=== PATIENT | male | born 1955 | race Caucasian/White ===

== ENCOUNTER 2018-06-11 18:17 | Inpatient (IN) | payer MEDICARE, OTHER ==
[2018-06-11 19:36] LABS: % BASOPHILS 0.8 % (0.0-2.0); % EOSINOPHILS 2.5 % (0.0-5.0); % LYMPHOCYTES 22.2 % (20.0-50.0); % MONOCYTES 7.7 % (2.0-10.0); % NEUTROPHILS 66.8 % (40.0-80.0); BASOPHILE ABSOLUTE 0.1 Th/cumm (0-0.2); EOSINOPHILE ABSOLUTE 0.2 Th/cmm (0.1-0.4); HEMATOCRIT 44.5 % (41.0-60); HEMOGLOBIN 14.6 gm/dL (12-16); LYMPHOCYTE ABSOLUTE 2.1 Th/cmm (1.5-3.0); MEAN CELL VOLUME 89.2 fl (80-99); MEAN CORPUSCULAR HEMOGLOBIN 29.3 pg (26.0-30.0); MEAN CORPUSCULAR HGB CONC 32.9 pg (28.0-36.0); MEAN PLATELET VOLUME 9.2 fl; MONOCYTE ABSOLUTE 0.7 Th/cmm (0.3-1.0); NEUTROPHILE ABSOLUTE 6.5 Th/cmm (1.8-8.0); PLATELET COUNT 247 Th/cmm (150-400); RED BLOOD COUNT 4.99 Mil/cmm (4.30-5.70); RED CELL DISTRIBUTION WIDTH 13.2 % (11.5-20.0); WHITE BLOOD COUNT 9.6 Th/cmm (4.8-10.8)
[2018-06-11 19:53] LABS: ANION GAP 11.3 (7.0-16.0); BUN - UREA NITROGEN 16 mg/dL (7-25); CALCIUM SERUM 9.3 mg/dL (8.6-10.3); CARBON DIOXIDE 27.7 mEq/L (21.0-31.0); CHLORIDE 102 mEq/L (98-107); CREATININE - SERUM 1.3 mg/dL (0.7-1.3); GFR AFRICAN-AMERICAN > 60.0 ml/min (>90); GFR NON AFRICAN-AMERICAN 59.3 ml/min; GLUCOSE 108 mg/dL (70-105); SODIUM SERUM 137 mEq/L (136-145)
--- NOTE | 2018-06-11 20:05 | ED Physician Chart ---
ED Chief Complaint/HPI - Patient Information Date Seen:: 06/11/18 Time Seen:: 20:01 Chief Complaint:: agitation History of Present Illness:: 62 male [facility] for agitation striking at people hx of htn parkinsons cad schizo Allergies:: Allergies Allergy/AdvReac Type Severity Reaction Status Date / Time No Known Allergies Allergy Verified 06/11/18 18:23 Vitals:: Vital Signs - 8 hr 06/11/18 18:23 Temp 98.3 F HR 75 RR 19 BP 139/80 O2 Sat % 97 ED Review of Systems - Review of Systems General/Constitutional: No fever, No chills, No weight loss, No weakness, No diaphoresis, No edema, No loss of appetite Skin: No skin lesions, No rash, No bruising Head: No headache, No light-headedness Eyes: No loss of vision, No pain, No diplopia ENT: No earache, No nasal drainage, No sore throat, No tinnitus Neck: No neck pain, No swelling, No thyromegaly, No stiffness, No mass noted Cardio Vascular: No chest pain, No palpitations, No PND, No orthopnea, No edema Pulmonary: No SOB, No cough, No sputum, No wheezing GI: No nausea, No vomiting, No diarrhea, No pain, No melena, No hematochezia, No constipation, No hematemesis G/U: No dysuria, No frequency, No hematuria Musculoskeletal: No bone or joint pain, No back pain, No muscle pain Endocrine: No polyuria, No polydipsia Psychiatric: Other (schizo) Hematopoietic: No bruising, No lymphadenopathy Allergic/Immuno: No urticaria, No angioedema Neurological: No syncope, No focal symptoms, No weakness, No paresthesia, No headache, No seizure, No dizziness, No confusion, No vertigo Family Medical History - Family Member Mother History Unknown: Yes ED Physical Exam - Physical Examination General/Constitutional: Awake, Well-developed, well-nourished, Alert, No distress, GCS 15, Non-toxic appearing, Ambulatory Head: Atraumatic Eyes: Lids, conjuctiva normal, PERRL, EOMI Skin: Nl inspection, No rash, No skin lesions, No ecchymosis, Well hydrated, No lymphadenopathy ENMT: External ears, nose nl, Nasal exam nl, Lips, teeth, gums nl Neck: Nontender, Full ROM w/o pain, No JVD, No nuchal rigidity, No bruit, No mass, No stridor Respiratory: Nl effort/Exclusion, Clear to Auscultation, No Wheeze/Rhonchi/Rales Cardio Vascular: RRR, No murmur, gallop, rubs, NL S1 S2 GI: No tenderness/rebounding/guarding, No organomegaly, No hernia, Normal BS's, Nondistended, No mass/bruits, No McBurney tenderness : No CVA tenderness Extremities: No tenderness or effusion, Full ROM, normal strength in all extremities, No edema, Normal digits & nails Neuro/Psych: Alert/oriented, DTR's symmetric, Normal sensory exam, Normal motor strength, Judgement/insight normal, Mood normal, Normal gait, No focal deficits Misc: Normal back, No paraspinal tenderness ED Labs/Radiology/EKG Results - Lab Results Results: Laboratory Tests 06/11/18 06/11/18 19:10 19:10 WBC 9.6 RBC 4.99 Hgb 14.6 Hct 44.5 MCV 89.2 MCH 29.3 MCHC Differential 32.9 RDW 13.2 Plt Count 247 MPV 9.2 Neutrophils % 66.8 Lymphocytes % 22.2 Monocytes % 7.7 Eosinophils % 2.5 Basophils % 0.8 Sodium 137 Potassium 4.0 Chloride 102 Carbon Dioxide 27.7 Anion Gap 11.3 BUN 16 Creatinine 1.3 Est GFR ( Amer) > 60.0 Est GFR (Non-Af Amer) 59.3 BUN/Creatinine Ratio 12.3 Glucose 108 H Calcium 9.3 ED Assessment - Assessment General Assessment: parkinson schizo agitation striking at people ED Septic Shock - . Is Septic Shock (SBP<90, OR Lactate>4 mmol\L) present?: No - <6hrs of presentation: Vital Signs: Vital Signs - 8 hr 06/11/18 18:23 Temp 98.3 F HR 75 RR 19 BP 139/80 O2 Sat % 97 ED Reassessment (Disposition) - Reassessment Reassessment:: schizo agitation parkinsons - Diagnosis Diagnosis:: as above - Patient Disposition Discharge/Transfer:: Acute Care w/in this hosp Admitted to:: Med/Surg Condition at Disposition:: Stable
[2018-06-11 20:17] LABS: URINE SOURCE CLEAN C
[2018-06-11 20:50] LABS: URINE BILIRUBIN NEGATIVE (NEGATIVE); URINE BLOOD NEGATIVE (NEGATIVE); URINE GLUCOSE (UA) NEGATIVE (NEGATIVE); URINE KETONE NEGATIVE (NEGATIVE); URINE LEUKOCYTE ESTERASE NEGATIVE (NEGATIVE); URINE NITRATE NEGATIVE (NEGATIVE); URINE PROTEIN NEGATIVE (NEGATIVE); URINE UROBILINOGEN 0.2 E.U./dL (0.2 - 1.0)
[2018-06-11 20:51] LABS: URINE CLARITY CLEAR (CLEAR); URINE COLOR YELLOW; URINE MICROSCOPIC INDICATED? YES
[2018-06-11 20:58] LABS: URINE BACTERIA FEW /hpf (NONE SEEN); URINE EPITHELIAL CELLS FEW /lpf (FEW); URINE RBC 0-2 /hpf (0-5); URINE WBC 0-2 /hpf (0-5)
[2018-06-11 22:23] VITALS: BP 110/87
[2018-06-11] MEDS ORDERED: Magnesium Hydroxide (MOM) 30 mL UDC PO PRN (22:48)
[2018-06-11 23:14] LABS: CHOLESTEROL 123 mg/dL (<200); HDL -HIGH DENSITY LIPOPROTEIN 31 mg/dL (23-92); TRIGLYCERIDES 109 mg/dL (<150)
[2018-06-12] MEDS: Benztropine 1 MG TAB PO SCH ×2 (08:58→17:42)
[2018-06-12] MEDS: Aspirin 81mg Chewable Tab PO SCH (08:58)
[2018-06-12] MEDS ORDERED: DEUTETRABENAZINE 6 MG PO SCH (09:00)
[2018-06-12] MEDS ORDERED: HALOPERIDOL 10 MG PO SCH (09:00)
--- NOTE | 2018-06-12 12:42 | History & Physical ---
ADMIT DATE: 06/11/2018 IDENTIFYING INFORMATION: The patient is a 62-year-old male. CHIEF COMPLAINT: "I need checkup." HISTORY OF PRESENT ILLNESS: The patient was sent from [place] for psych unit. The patient has been agitated, paranoid schizophrenia. He has been aggressive verbally striking at staff. The patient himself was a poor historian that he has no idea why he is here. He think he is here to check up. He reports that he sleeps well, eats well. He denies any current visual hallucinations or paranoia. Denies any intent to harm himself or anyone. He has no insight whatsoever about why he is here. The patient is with history of schizophrenia. He denies substance abuse. PAST PSYCHIATRIC HISTORY: The patient reports that he has a history of using alcohol, THC, in the past, not recently. He has a history of prior hospitalization because of hearing voices. He said never tried to harm himself. He is unable to tell me the dates. MEDICAL HISTORY: I will defer to the medical doctor. ALLERGIES: The patient has no known drug allergies. MEDICATIONS: The patient has been on Haldol and Seroquel. He was restarted on this medication, Haldol 10 mg daily and 2.5 mg at bedtime. He is also on lisinopril, Plavix, Coreg, Cogentin 2 mg twice a day, Seroquel 300 at bedtime with no side effects. FAMILY AND SOCIAL HISTORY: The patient reports that he is single, never , no children. He has 2 years in college. He used to work as security alarm technician. History of using drugs in the past, alcohol and marijuana, but not recently. He is not dating. He lives in a room and board, he believed. No family psychotic disorder. No history of substance abuse. No legal problem. MENTAL STATUS EXAMINATION: The patient is appropriately dressed, appropriately groomed. His mood is depressed. Affect is constricted. Thoughts are concrete. Speech is coherent. He was alert. He could not tell me the date. He knew he was in the hospital, did not know why. He said he is here for a checkup. He denies any current visual hallucination, paranoia and denies any intent to harm herself or anybody sleeps well, eats well. 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 He says ____. He can remember his age, date of . However, he think that current president is Juan Francisco. Recent recent memory is poor, does not know the reason why he is here. Insight about his illness is poor, does not realize that there is a problem. Judgment is poor with him striking staff being aggressive. IMPRESSION: Chronic undifferentiated schizophrenia versus schizoaffective disorder. MEDICAL DIAGNOSES: Deferred to the medical doctor. His assets, he is accepting treatment. Negative poor coping skills. INITIAL TREATMENT PLAN: The patient will be continued medication. We will adjust medication as needed. We will do group therapy, milieu therapy, and individual therapy. ESTIMATED LENGTH OF STAY: 3-7 days. DISCHARGE CRITERIA: Decrease in psychosis, agitation. No longer threatening. After discharge, outpatient treatment. [facility]# [id number]
--- NOTE | 2018-06-12 14:39 | History & Physical ---
ADMIT DATE: 06/12/[address] Ovalles. CHIEF COMPLAINT: Agitation. HISTORY OF PRESENT ILLNESS: This is a 62-year-old male who is a senior living resident, admitted to the Geropsych Unit due to 1-day history of agitation towards the nursing staff and residents at the senior living. PAST MEDICAL HISTORY: Parkinson, CAD, hypertension, schizophrenia. PAST SURGICAL HISTORY: Unknown. ALLERGIES: No known drug allergies. HOME MEDICATIONS: See medication list. REVIEW OF SYSTEMS: GENERAL: Denies any fevers or chills. CARDIOVASCULAR: Denies chest pain. RESPIRATORY: Denies shortness of breath. GI: Denies nausea, vomiting, abdominal pain. GENITOURINARY: Denies increased frequency or dysuria. NEUROLOGIC: No headaches, seizures, or syncope. All other systems are reviewed and are negative. PHYSICAL EXAMINATION: GENERAL: The patient is well-developed, well-nourished, in no apparent distress. VITAL SIGNS: Temperature 99.1, heart rate 79, blood pressure 129/89, respirations 20, O2 93%. HEENT: Head: Normocephalic, atraumatic. NECK: Supple. No mass. LUNGS: Clear bilaterally. ABDOMEN: Soft, nontender. LABORATORY DATA: WBC 9.6, H and H 14.6 and 44.5, platelet of 247. Sodium 137, potassium 4.0, chloride 102, BUN 16, creatinine 1.3. ASSESSMENT: Agitation, hypertension, Parkinson disease, coronary artery disease, schizophrenia. PLAN: We will continue the patient's senior living medications, fall precautions, safety precautions. We will continue to monitor this patient. JOB# [id number]
[2018-06-12] MEDS: Atorvastatin Calcium 10 MG TAB PO SCH (20:37)
[2018-06-12] MEDS ORDERED: Non-Formulary Item 1 EA (Rosuvastatin Calcium [Crestor] 5 MG) PO SCH (21:00)
[2018-06-13] MEDS: Benztropine 1 MG TAB PO SCH ×2 (08:42→16:59)
[2018-06-13] MEDS: Aspirin 81mg Chewable Tab PO SCH (08:42)
[2018-06-13] MEDS: Atorvastatin Calcium 10 MG TAB PO SCH (20:37)
[2018-06-14] MEDS: Aspirin 81mg Chewable Tab PO SCH (08:32)
[2018-06-14] MEDS: Benztropine 1 MG TAB PO SCH ×2 (08:32→16:45)
--- NOTE | 2018-06-14 12:03 | Internal Medicine Prog Note ---
Internal Medicine Subjective - Subjective Service Date: 06/14/18 Patient seen and examined:: with staff Patient is:: awake Per staff patient has:: tolerating meds Internal Medicine Objective - Results Result Diagrams: 06/11/18 19:10 06/11/18 19:10 Recent Labs: Laboratory Last Values WBC 9.6 Th/cmm (4.8-10.8) 06/11/18 19:10 RBC 4.99 Mil/cmm (4.30-5.70) 06/11/18 19:10 Hgb 14.6 gm/dL (12-16) 06/11/18 19:10 Hct 44.5 % (41.0-60) 06/11/18 19:10 MCV 89.2 fl (80-99) 06/11/18 19:10 MCH 29.3 pg (26.0-30.0) 06/11/18 19:10 MCHC Differential 32.9 pg (28.0-36.0) 06/11/18 19:10 RDW 13.2 % (11.5-20.0) 06/11/18 19:10 Plt Count 247 Th/cmm (150-400) 06/11/18 19:10 MPV 9.2 fl 06/11/18 19:10 Neutrophils % 66.8 % (40.0-80.0) 06/11/18 19:10 Lymphocytes % 22.2 % (20.0-50.0) 06/11/18 19:10 Monocytes % 7.7 % (2.0-10.0) 06/11/18 19:10 Eosinophils % 2.5 % (0.0-5.0) 06/11/18 19:10 Basophils % 0.8 % (0.0-2.0) 06/11/18 19:10 Sodium 137 mEq/L (136-145) 06/11/18 19:10 Potassium 4.0 mEq/L (3.5-5.1) 06/11/18 19:10 Chloride 102 mEq/L (98-107) 06/11/18 19:10 Carbon Dioxide 27.7 mEq/L (21.0-31.0) 06/11/18 19:10 Anion Gap 11.3 (7.0-16.0) 06/11/18 19:10 BUN 16 mg/dL (7-25) 06/11/18 19:10 Creatinine 1.3 mg/dL (0.7-1.3) 06/11/18 19:10 Est GFR ( Amer) > 60.0 ml/min (>90) 06/11/18 19:10 Est GFR (Non-Af Amer) 59.3 ml/min 06/11/18 19:10 BUN/Creatinine Ratio 12.3 06/11/18 19:10 Glucose 108 mg/dL (70-105) H 06/11/18 19:10 Calcium 9.3 mg/dL (8.6-10.3) 06/11/18 19:10 Triglycerides 109 mg/dL (<150) 06/11/18 19:10 Cholesterol 123 mg/dL (<200) 06/11/18 19:10 LDL Cholesterol Direct 84 mg/dL (75-193) 06/11/18 19:10 HDL Cholesterol 31 mg/dL (23-92) 06/11/18 19:10 Urine Source CLEAN C 06/11/18 20:10 Urine Color YELLOW 06/11/18 20:10 Urine Clarity CLEAR (CLEAR) 06/11/18 20:10 Urine pH 6.0 (4.6 - 8.0) 06/11/18 20:10 Ur Specific [place] 1.015 (1.005-1.030) 06/11/18 20:10 Urine Protein NEGATIVE mg/dL (NEGATIVE) 06/11/18 20:10 Urine Glucose (UA) NEGATIVE mg/dL (NEGATIVE) 06/11/18 20:10 Urine Ketones NEGATIVE mg/dL (NEGATIVE) 06/11/18 20:10 Urine Blood NEGATIVE (NEGATIVE) 06/11/18 20:10 Urine Nitrate NEGATIVE (NEGATIVE) 06/11/18 20:10 Urine Bilirubin NEGATIVE (NEGATIVE) 06/11/18 20:10 Urine Urobilinogen 0.2 E.U./dL (0.2 - 1.0) 06/11/18 20:10 Ur Leukocyte Esterase NEGATIVE (NEGATIVE) 06/11/18 20:10 Urine RBC 0-2 /hpf (0-5) H 06/11/18 20:10 Urine WBC 0-2 /hpf (0-5) 06/11/18 20:10 Ur Epithelial Cells FEW /lpf (FEW) 06/11/18 20:10 Urine Bacteria FEW /hpf (NONE SEEN) 06/11/18 20:10 - Physical Exam Vitals and I&O: Vital Signs Temp 98.1 F 06/14/18 06:38 Pulse 72 06/14/18 08:32 Resp 20 06/14/18 08:00 BP 106/78 06/14/18 08:32 Pulse Ox 98 06/14/18 06:38 Intake & Output 06/13/18 06/14/18 06/14/18 18:59 06:59 18:59 Intake Total 1200 120 Balance 1200 120 Intake: Oral 1080 120 Other 120 Other: # Voids 4 3 # Bowel Movements 0 Active Medications: Current Medications Acetaminophen (Tylenol) 650 mg PO Q4HR PRN PRN Reason: Mild Pain / Temp above 100 Stop: 08/10/18 22:52 Aspirin (Aspirin Chewable) 81 mg PO DAILY [facility] Stop: 08/11/18 08:59 Last Admin: 06/14/18 08:32 Dose: 81 mg Atorvastatin Calcium (Lipitor) 20 mg PO HS [facility] Stop: 08/11/18 20:59 Last Admin: 06/13/18 20:37 Dose: 20 mg Benztropine Mesylate (Cogentin) 2 mg PO BID [facility] Stop: 08/11/18 08:59 Last Admin: 06/14/18 08:32 Dose: 2 mg Carvedilol (Coreg) 12.5 mg PO BIDWM [facility] Stop: 08/11/18 07:59 Last Admin: 06/14/18 08:32 Dose: 12.5 mg Clopidogrel Bisulfate (Plavix) 75 mg PO DAILY [facility] Stop: 08/11/18 08:59 Last Admin: 06/14/18 08:32 Dose: 75 mg Docusate Sodium (Colace) 100 mg PO BID [facility] Stop: 08/11/18 08:59 Last Admin: 06/14/18 08:31 Dose: 100 mg Haloperidol (Haldol) 10 mg PO DAILY [facility]; Protocol Stop: 08/11/18 08:59 Last Admin: 06/14/18 08:31 Dose: 10 mg Haloperidol (Haldol) 2.5 mg PO HS [facility]; Protocol Stop: 08/11/18 20:59 Last Admin: 06/13/18 20:35 Dose: 2.5 mg Lisinopril (Zestril) 5 mg PO DAILY [facility] Stop: 08/11/18 08:59 Last Admin: 06/14/18 08:31 Dose: 5 mg Lorazepam (Ativan) 0.5 mg PO Q4HR PRN; Protocol PRN Reason: Anxiety Stop: 07/11/18 22:52 Magnesium Hydroxide (Milk Of Magnesia) 30 ml PO HS PRN PRN Reason: Constipation Stop: 08/10/18 22:47 Miscellaneous (Deutetrabenazine [Austedo]) 6 mg PO BID [facility] Stop: 08/11/18 08:59 Quetiapine Fumarate (Seroquel) 300 mg PO HS [facility]; Protocol Stop: 08/11/18 20:59 Last Admin: 06/13/18 20:37 Dose: 300 mg Zolpidem Tartrate (Ambien) 5 mg PO HSMR1 PRN PRN Reason: Insomnia Stop: 08/10/18 22:52 HEENT: NC/AT, PERRLA Neck: Supple Lungs: CTAB Cardiovascular: RRR, Normal S1, Normal S2 Abdomen: soft, non-tender Internal Medicine Assmt/Plan - Assessment Assessment: agitation htn parkinsons schizophrenia - Plan Plan: cpm
--- NOTE | 2018-06-14 14:17 | Progress Notes ---
DATE: 06/14/2018 Case was discussed with staff of the patient, reviewed records. The patient continues to have poor insight, continues to be unpredictable, impulsive, and needing redirection. Continues to be unable to make safe plan for self-care. Continues to be psychotic. He is on Seroquel 300 mg at bedtime, Haldol 2.5 mg at bedtime and 10 mg daily. No side effects with the medication, no sedation or nausea, no extrapyramidal symptoms. We will continue the patient in group therapy. He has no clue about his reason for admission with his aggressive behavior. We will continue with the patient in group therapy and milieu therapy, adjust the medication as needed. [facility]# [id number]
[2018-06-14] MEDS: Atorvastatin Calcium 10 MG TAB PO SCH (21:20)
[2018-06-15] MEDS: Benztropine 1 MG TAB PO SCH ×2 (08:17→16:23)
[2018-06-15] MEDS: Aspirin 81mg Chewable Tab PO SCH (08:19)
--- NOTE | 2018-06-15 12:21 | Internal Medicine Prog Note ---
Internal Medicine Subjective - Subjective Patient seen and examined:: chart reviewed (pt. behavior is unpredictable ) Patient is:: awake Per staff patient has:: tolerating meds Internal Medicine Objective - Results Result Diagrams: 06/11/18 19:10 06/11/18 19:10 Recent Labs: Laboratory Last Values WBC 9.6 Th/cmm (4.8-10.8) 06/11/18 19:10 RBC 4.99 Mil/cmm (4.30-5.70) 06/11/18 19:10 Hgb 14.6 gm/dL (12-16) 06/11/18 19:10 Hct 44.5 % (41.0-60) 06/11/18 19:10 MCV 89.2 fl (80-99) 06/11/18 19:10 MCH 29.3 pg (26.0-30.0) 06/11/18 19:10 MCHC Differential 32.9 pg (28.0-36.0) 06/11/18 19:10 RDW 13.2 % (11.5-20.0) 06/11/18 19:10 Plt Count 247 Th/cmm (150-400) 06/11/18 19:10 MPV 9.2 fl 06/11/18 19:10 Neutrophils % 66.8 % (40.0-80.0) 06/11/18 19:10 Lymphocytes % 22.2 % (20.0-50.0) 06/11/18 19:10 Monocytes % 7.7 % (2.0-10.0) 06/11/18 19:10 Eosinophils % 2.5 % (0.0-5.0) 06/11/18 19:10 Basophils % 0.8 % (0.0-2.0) 06/11/18 19:10 Sodium 137 mEq/L (136-145) 06/11/18 19:10 Potassium 4.0 mEq/L (3.5-5.1) 06/11/18 19:10 Chloride 102 mEq/L (98-107) 06/11/18 19:10 Carbon Dioxide 27.7 mEq/L (21.0-31.0) 06/11/18 19:10 Anion Gap 11.3 (7.0-16.0) 06/11/18 19:10 BUN 16 mg/dL (7-25) 06/11/18 19:10 Creatinine 1.3 mg/dL (0.7-1.3) 06/11/18 19:10 Est GFR ( Amer) > 60.0 ml/min (>90) 06/11/18 19:10 Est GFR (Non-Af Amer) 59.3 ml/min 06/11/18 19:10 BUN/Creatinine Ratio 12.3 06/11/18 19:10 Glucose 108 mg/dL (70-105) H 06/11/18 19:10 Calcium 9.3 mg/dL (8.6-10.3) 06/11/18 19:10 Triglycerides 109 mg/dL (<150) 06/11/18 19:10 Cholesterol 123 mg/dL (<200) 06/11/18 19:10 LDL Cholesterol Direct 84 mg/dL (75-193) 06/11/18 19:10 HDL Cholesterol 31 mg/dL (23-92) 06/11/18 19:10 Urine Source CLEAN C 06/11/18 20:10 Urine Color YELLOW 06/11/18 20:10 Urine Clarity CLEAR (CLEAR) 06/11/18 20:10 Urine pH 6.0 (4.6 - 8.0) 06/11/18 20:10 Ur Specific [place] 1.015 (1.005-1.030) 06/11/18 20:10 Urine Protein NEGATIVE mg/dL (NEGATIVE) 06/11/18 20:10 Urine Glucose (UA) NEGATIVE mg/dL (NEGATIVE) 06/11/18 20:10 Urine Ketones NEGATIVE mg/dL (NEGATIVE) 06/11/18 20:10 Urine Blood NEGATIVE (NEGATIVE) 06/11/18 20:10 Urine Nitrate NEGATIVE (NEGATIVE) 06/11/18 20:10 Urine Bilirubin NEGATIVE (NEGATIVE) 06/11/18 20:10 Urine Urobilinogen 0.2 E.U./dL (0.2 - 1.0) 06/11/18 20:10 Ur Leukocyte Esterase NEGATIVE (NEGATIVE) 06/11/18 20:10 Urine RBC 0-2 /hpf (0-5) H 06/11/18 20:10 Urine WBC 0-2 /hpf (0-5) 06/11/18 20:10 Ur Epithelial Cells FEW /lpf (FEW) 06/11/18 20:10 Urine Bacteria FEW /hpf (NONE SEEN) 06/11/18 20:10 - Physical Exam Vitals and I&O: Vital Signs Temp 97 F 06/15/18 06:28 Pulse 68 06/15/18 08:18 Resp 19 06/15/18 06:28 BP 133/75 06/15/18 08:18 Pulse Ox 97 06/15/18 06:28 Intake & Output 06/14/18 06/15/18 06/15/18 18:59 06:59 18:59 Intake Total 120 Balance 120 Intake: Oral 120 Other: # Voids 3 Active Medications: Current Medications Acetaminophen (Tylenol) 650 mg PO Q4HR PRN PRN Reason: Mild Pain / Temp above 100 Stop: 08/10/18 22:52 Aspirin (Aspirin Chewable) 81 mg PO DAILY [facility] Stop: 08/11/18 08:59 Last Admin: 06/15/18 08:19 Dose: 81 mg Atorvastatin Calcium (Lipitor) 20 mg PO HS [facility] Stop: 08/11/18 20:59 Last Admin: 06/14/18 21:20 Dose: 20 mg Benztropine Mesylate (Cogentin) 2 mg PO BID [facility] Stop: 08/11/18 08:59 Last Admin: 06/15/18 08:17 Dose: 2 mg Carvedilol (Coreg) 12.5 mg PO BIDWM [facility] Stop: 08/11/18 07:59 Last Admin: 06/15/18 08:17 Dose: 12.5 mg Clopidogrel Bisulfate (Plavix) 75 mg PO DAILY [facility] Stop: 08/11/18 08:59 Last Admin: 06/15/18 08:19 Dose: 75 mg Docusate Sodium (Colace) 100 mg PO BID [facility] Stop: 08/11/18 08:59 Last Admin: 06/15/18 08:19 Dose: 100 mg Haloperidol (Haldol) 10 mg PO DAILY [facility]; Protocol Stop: 08/11/18 08:59 Last Admin: 06/15/18 08:19 Dose: 10 mg Haloperidol (Haldol) 2.5 mg PO HS [facility]; Protocol Stop: 08/11/18 20:59 Last Admin: 06/14/18 21:20 Dose: 2.5 mg Lisinopril (Zestril) 5 mg PO DAILY [facility] Stop: 08/11/18 08:59 Last Admin: 06/15/18 08:18 Dose: 5 mg Lorazepam (Ativan) 0.5 mg PO Q4HR PRN; Protocol PRN Reason: Anxiety Stop: 07/11/18 22:52 Magnesium Hydroxide (Milk Of Magnesia) 30 ml PO HS PRN PRN Reason: Constipation Stop: 08/10/18 22:47 Miscellaneous (Deutetrabenazine [Austedo]) 6 mg PO BID [facility] Stop: 08/11/18 08:59 Quetiapine Fumarate (Seroquel) 300 mg PO HS [facility]; Protocol Stop: 08/11/18 20:59 Last Admin: 06/14/18 21:21 Dose: 300 mg Zolpidem Tartrate (Ambien) 5 mg PO HSMR1 PRN PRN Reason: Insomnia Stop: 08/10/18 22:52 General: alert, NAD HEENT: NC/AT, PERRLA Neck: Supple Lungs: CTAB Cardiovascular: RRR, Normal S1, Normal S2 Abdomen: soft, non-tender Neurological: other (psychosis ) Internal Medicine Assmt/Plan - Assessment Assessment: agitation hypertension parkinson's disease schizophrenia psychosis - Plan Plan: as per andreina will monitor vitals labs cpm Nutritional Asmnt/Malnutr-PDOC - Dietary Evaluation Malnutrition Findings (Please click <Entered> for more info): Nutritional Asmnt/Malnutrition Start: 06/15/18 10: 19 Text: Status: Active Freq: Protocol: Document 06/15/18 10:19 LCHENG (Rec: 06/15/18 10:26 LCHENG [id number]) Nutritional Asmnt/Malnutrition Patient General Information Nutritional Screening Moderate Risk Diagnosis psychosis Pertinent Medical Hx/Surgical Hx parkisin, CAD, HTN, schizophrenia Subjective Information Per EMR, PO intake 100%. Current Diet Order/ Nutrition Support 2gm Na, ZIGGY Pertinent Medications lipitor, colace, seroquel Pertinent Labs 06/11 Glucose 108 Nutritional Hx/Data Height 1.75 m Height (Calculated Centimeters) 175.3 Current Weight (lbs) 102.058 kg Weight (Calculated Kilograms) 102.1 Weight (Calculated Grams) 298801.3 [place] Body Weight 160 Body Mass Index (BMI) 33.2 Weight Status Obese GI Symptoms GI Symptoms None Last BM 06/12 Difficult in: None Skin Integrity/Comment: intact Current %PO Good (75-100%) Estimated Nutritional Goals BEE in Kcals: Adj wt of IBW Calories/Kcals/Kg 25-30 Kcals Calculated 2102-6516 Protein: Adj wt of IBW Protein g/k.8 Protein Calculated 64 Fluid: ml 2000-2400ml (1ml/kcal) Nutritional Problem No current Nutrition Prob Problem N/A Malnutrition Alert Is there a minimum of two criteria No selected? Query Text:Check all the applicable criteria. A minimum of two criteria are recommended for diagnosis of either severe or non-severe malnutrition. Malnutrition Related to Morbid Obesity Malnutrition related to morbid obesity No Intervention/Recommendation Comments 1. Continue with 2gm Na ZIGGY diet as ordered. 2. Monitor PO intake, wt, labs and skin integrity 3. F/U as Expected Outcomes/Goals Expected Outcomes/Goals 1. PO intake to meet at least 75% of nutritional needs. 2. Wt stability, skin to remain intact, labs to approach WNL.
--- NOTE | 2018-06-15 12:34 | Progress Notes ---
DATE: 06/15/2018 Case was discussed with staff of the patient, reviewed records. The patient continues to be unpredictable, impulsive, internally preoccupied. Continues to be unable to make safe plan for self-care. Continues to bee _ psychotic. He is sleeping better, eating better. No side effects with the medication, no sedation or nausea, no extrapyramidal symptoms. We will continue the patient in group therapy, milieu therapy, and adjust medication as needed. [facility]# [id number] MTDD
[2018-06-15] MEDS: Atorvastatin Calcium 10 MG TAB PO SCH (20:43)
--- NOTE | 2018-06-16 07:10 | Progress Notes ---
DATE: 06/13/2018 PSYCHIATRIC PROGRESS NOTE SUBJECTIVE: Chart reviewed and the patient interviewed. Also discussed the patient's condition with the staff and reviewed records and labs. The patient continued to be verbally aggressive with the staff and with peers. Also, still seems to be in a depressed mood and he is isolating himself and has minimum interaction with others. The patient also is still minimizing his agitation and aggressive behavior in the [place] [facility] prior to coming to the hospital. He also still needs lots of redirections. On the other hand, the patient continued to take Haldol 10 mg in the morning and 25 mg at bedtime as well as Seroquel 300 mg at bedtime and Cogentin 2 mg twice a day with no side effects. ASSESSMENT: The patient is still aggressive and agitated. TREATMENT PLAN: Continue to monitor his behavior and condition closely. Also, continue working on behavior modification and his aggressive behavior and continue to follow up. JOB# [id number]
[2018-06-16] MEDS: Benztropine 1 MG TAB PO SCH ×2 (09:38→17:37)
[2018-06-16] MEDS: Aspirin 81mg Chewable Tab PO SCH (09:39)
--- NOTE | 2018-06-16 18:24 | Progress Notes ---
DATE: 06/16/2018 SUBJECTIVE: The patient was sent from [place], agitated, aggressive, verbally striking at staff, poor historian. On [id number], the patient remains somewhat unruly, upset, internally preoccupied, making some nonsensical statements. Nursing staff noting he remains pretty confused, disoriented, wandering, pacing, slept for about 6 hours. ASSESSMENT: The patient remains unruly, still easily agitated. PLAN: We will continue to monitor ongoing visual disturbances. Medications were noted. JOB# [id number]
[2018-06-16] MEDS: Atorvastatin Calcium 10 MG TAB PO SCH (21:08)
[2018-06-17] MEDS ORDERED: HALOPERIDOL PO SCH (09:00)
[2018-06-17] MEDS: Benztropine 1 MG TAB PO SCH ×2 (09:18→18:03)
[2018-06-17] MEDS: Aspirin 81mg Chewable Tab PO SCH (09:19)
--- NOTE | 2018-06-17 10:33 | Internal Medicine Prog Note ---
Internal Medicine Subjective - Subjective Patient seen and examined:: chart reviewed Patient is:: awake, other (still confuse and easily agitated ) Per staff patient has:: no adverse event, tolerating meds Internal Medicine Objective - Results Result Diagrams: 06/11/18 19:10 06/11/18 19:10 Recent Labs: Laboratory Last Values WBC 9.6 Th/cmm (4.8-10.8) 06/11/18 19:10 RBC 4.99 Mil/cmm (4.30-5.70) 06/11/18 19:10 Hgb 14.6 gm/dL (12-16) 06/11/18 19:10 Hct 44.5 % (41.0-60) 06/11/18 19:10 MCV 89.2 fl (80-99) 06/11/18 19:10 MCH 29.3 pg (26.0-30.0) 06/11/18 19:10 MCHC Differential 32.9 pg (28.0-36.0) 06/11/18 19:10 RDW 13.2 % (11.5-20.0) 06/11/18 19:10 Plt Count 247 Th/cmm (150-400) 06/11/18 19:10 MPV 9.2 fl 06/11/18 19:10 Neutrophils % 66.8 % (40.0-80.0) 06/11/18 19:10 Lymphocytes % 22.2 % (20.0-50.0) 06/11/18 19:10 Monocytes % 7.7 % (2.0-10.0) 06/11/18 19:10 Eosinophils % 2.5 % (0.0-5.0) 06/11/18 19:10 Basophils % 0.8 % (0.0-2.0) 06/11/18 19:10 Sodium 137 mEq/L (136-145) 06/11/18 19:10 Potassium 4.0 mEq/L (3.5-5.1) 06/11/18 19:10 Chloride 102 mEq/L (98-107) 06/11/18 19:10 Carbon Dioxide 27.7 mEq/L (21.0-31.0) 06/11/18 19:10 Anion Gap 11.3 (7.0-16.0) 06/11/18 19:10 BUN 16 mg/dL (7-25) 06/11/18 19:10 Creatinine 1.3 mg/dL (0.7-1.3) 06/11/18 19:10 Est GFR ( Amer) > 60.0 ml/min (>90) 06/11/18 19:10 Est GFR (Non-Af Amer) 59.3 ml/min 06/11/18 19:10 BUN/Creatinine Ratio 12.3 06/11/18 19:10 Glucose 108 mg/dL (70-105) H 06/11/18 19:10 Calcium 9.3 mg/dL (8.6-10.3) 06/11/18 19:10 Triglycerides 109 mg/dL (<150) 06/11/18 19:10 Cholesterol 123 mg/dL (<200) 06/11/18 19:10 LDL Cholesterol Direct 84 mg/dL (75-193) 06/11/18 19:10 HDL Cholesterol 31 mg/dL (23-92) 06/11/18 19:10 Urine Source CLEAN C 06/11/18 20:10 Urine Color YELLOW 06/11/18 20:10 Urine Clarity CLEAR (CLEAR) 06/11/18 20:10 Urine pH 6.0 (4.6 - 8.0) 06/11/18 20:10 Ur Specific [place] 1.015 (1.005-1.030) 06/11/18 20:10 Urine Protein NEGATIVE mg/dL (NEGATIVE) 06/11/18 20:10 Urine Glucose (UA) NEGATIVE mg/dL (NEGATIVE) 06/11/18 20:10 Urine Ketones NEGATIVE mg/dL (NEGATIVE) 06/11/18 20:10 Urine Blood NEGATIVE (NEGATIVE) 06/11/18 20:10 Urine Nitrate NEGATIVE (NEGATIVE) 06/11/18 20:10 Urine Bilirubin NEGATIVE (NEGATIVE) 06/11/18 20:10 Urine Urobilinogen 0.2 E.U./dL (0.2 - 1.0) 06/11/18 20:10 Ur Leukocyte Esterase NEGATIVE (NEGATIVE) 06/11/18 20:10 Urine RBC 0-2 /hpf (0-5) H 06/11/18 20:10 Urine WBC 0-2 /hpf (0-5) 06/11/18 20:10 Ur Epithelial Cells FEW /lpf (FEW) 06/11/18 20:10 Urine Bacteria FEW /hpf (NONE SEEN) 06/11/18 20:10 - Physical Exam Vitals and I&O: Vital Signs Temp 98.6 F 06/17/18 06:13 Pulse 65 06/17/18 09:18 Resp 18 06/17/18 06:13 BP 101/61 06/17/18 09:18 Pulse Ox 92 06/17/18 06:13 Intake & Output 06/16/18 06/17/18 06/17/18 18:59 06:59 18:59 Intake Total 1000 120 Balance 1000 120 Intake: Oral 1000 120 Other: # Voids 4 2 # Bowel Movements 1 0 Active Medications: Current Medications Acetaminophen (Tylenol) 650 mg PO Q4HR PRN PRN Reason: Mild Pain / Temp above 100 Stop: 08/10/18 22:52 Aspirin (Aspirin Chewable) 81 mg PO DAILY [facility] Stop: 08/11/18 08:59 Last Admin: 06/17/18 09:19 Dose: 81 mg Atorvastatin Calcium (Lipitor) 20 mg PO HS [facility] Stop: 08/11/18 20:59 Last Admin: 06/16/18 21:08 Dose: 20 mg Benztropine Mesylate (Cogentin) 2 mg PO BID [facility] Stop: 08/11/18 08:59 Last Admin: 06/17/18 09:18 Dose: 2 mg Carvedilol (Coreg) 12.5 mg PO BIDWM [facility] Stop: 08/11/18 07:59 Last Admin: 06/17/18 09:18 Dose: 12.5 mg Clopidogrel Bisulfate (Plavix) 75 mg PO DAILY [facility] Stop: 08/11/18 08:59 Last Admin: 06/17/18 09:18 Dose: 75 mg Docusate Sodium (Colace) 100 mg PO BID [facility] Stop: 08/11/18 08:59 Last Admin: 06/17/18 09:19 Dose: 100 mg Haloperidol 2 mg/ Haloperidol (5 mg) 7 mg PO DAILY [facility] Stop: 08/16/18 08:59 Lisinopril (Zestril) 5 mg PO DAILY [facility] Stop: 08/11/18 08:59 Last Admin: 06/17/18 09:17 Dose: 5 mg Lorazepam (Ativan) 0.5 mg PO Q4HR PRN; Protocol PRN Reason: Anxiety Stop: 07/11/18 22:52 Last Admin: 06/17/18 09:17 Dose: 0.5 mg Magnesium Hydroxide (Milk Of Magnesia) 30 ml PO HS PRN PRN Reason: Constipation Stop: 08/10/18 22:47 Miscellaneous (Deutetrabenazine [Austedo]) 6 mg PO BID [facility] Stop: 08/11/18 08:59 Quetiapine Fumarate (Seroquel) 300 mg PO HS [facility]ATHY; Protocol Stop: 08/11/18 20:59 Last Admin: 06/16/18 21:08 Dose: 300 mg Zolpidem Tartrate (Ambien) 5 mg PO HSMR1 PRN PRN Reason: Insomnia Stop: 08/10/18 22:52 General: alert, NAD, other (confused) HEENT: NC/AT, PERRLA Neck: Supple Lungs: CTAB Cardiovascular: RRR, Normal S1, Normal S2 Abdomen: soft, non-tender Neurological: other (psychosis ) Internal Medicine Assmt/Plan - Assessment Assessment: agitation hypertension parkinson's disease schizophrenia psychosis - Plan Plan: as per andreina will monitor vitals labs cpm Nutritional Asmnt/Malnutr-PDOC - Dietary Evaluation Malnutrition Findings (Please click <Entered> for more info): Nutritional Asmnt/Malnutrition Start: 06/15/18 10: 19 Text: Status: Complete Freq: Protocol: Document 06/15/18 10:19 LCHENG (Rec: 06/15/18 10:26 LCHENG [email or web address]) Nutritional Asmnt/Malnutrition Patient General Information Nutritional Screening Moderate Risk Diagnosis psychosis Pertinent Medical Hx/Surgical Hx parkisin, CAD, HTN, schizophrenia Subjective Information Per EMR, PO intake 100%. Current Diet Order/ Nutrition Support 2gm Na, ZIGGY Pertinent Medications lipitor, colace, seroquel Pertinent Labs 06/11 Glucose 108 Nutritional Hx/Data Height 1.75 m Height (Calculated Centimeters) 175.3 Current Weight (lbs) 102.058 kg Weight (Calculated Kilograms) 102.1 Weight (Calculated Grams) 036504.3 [place] Body Weight 160 Body Mass Index (BMI) 33.2 Weight Status Obese GI Symptoms GI Symptoms None Last BM 06/12 Difficult in: None Skin Integrity/Comment: intact Current %PO Good (75-100%) Estimated Nutritional Goals BEE in Kcals: Adj wt of IBW Calories/Kcals/Kg 25-30 Kcals Calculated 8851-2302 Protein: Adj wt of IBW Protein g/k.8 Protein Calculated 64 Fluid: ml 2000-2400ml (1ml/kcal) Nutritional Problem No current Nutrition Prob Problem N/A Malnutrition Alert Is there a minimum of two criteria No selected? Query Text:Check all the applicable criteria. A minimum of two criteria are recommended for diagnosis of either severe or non-severe malnutrition. Malnutrition Related to Morbid Obesity Malnutrition related to morbid obesity No Intervention/Recommendation Comments 1. Continue with 2gm Na ZIGGY diet as ordered. 2. Monitor PO intake, wt, labs and skin integrity 3. F/U as low risk in 7 days Expected Outcomes/Goals Expected Outcomes/Goals 1. PO intake to meet at least 75% of nutritional needs. 2. Wt stability, skin to remain intact, labs to approach WNL.
--- NOTE | 2018-06-17 20:25 | Progress Notes ---
DATE: 06/17/2018 SUBJECTIVE: The patient in the hospital slept for about 7-1/2 hours, had been agitated, seems somewhat calmer, improving to some extent. On [id number], the patient is sleeping, arousable, does not want to wake up and talk to me and essentially refusing interview. Staff noting a fine tremor. The patient has been somewhat more calm for the past one to two days, but remains pretty confused and withdrawn. ASSESSMENT: The patient seems to be showing some signs of improvement. Currently on dose of Seroquel and also Haldol, given dual therapy and the notion that there is a fine tremor noted. PLAN: I will stop the Haldol and to continue dosing of Seroquel. We will continue to monitor and monitor for any further side effects. I will be lowering dosing of Haldol rather than stopping the Haldol. JOB# [id number]
[2018-06-17] MEDS: Atorvastatin Calcium 10 MG TAB PO SCH (21:36)
[2018-06-18] MEDS: Aspirin 81mg Chewable Tab PO SCH (08:31)
[2018-06-18] MEDS: Benztropine 1 MG TAB PO SCH ×2 (08:31→16:54)
--- NOTE | 2018-06-18 10:41 | Internal Medicine Prog Note ---
Internal Medicine Subjective - Subjective Service Date: 06/18/18 Patient seen and examined:: with staff, chart reviewed Patient is:: awake, confused, other (still confused and agitated ) Patient Complaints of:: other (very withdrawn, staff noting a tremor.) Per staff patient has:: no adverse event, no episodes of fall, agitated, confused, tolerating meds Internal Medicine Objective - Results Result Diagrams: 06/11/18 19:10 06/11/18 19:10 Recent Labs: Laboratory Last Values WBC 9.6 Th/cmm (4.8-10.8) 06/11/18 19:10 RBC 4.99 Mil/cmm (4.30-5.70) 06/11/18 19:10 Hgb 14.6 gm/dL (12-16) 06/11/18 19:10 Hct 44.5 % (41.0-60) 06/11/18 19:10 MCV 89.2 fl (80-99) 06/11/18 19:10 MCH 29.3 pg (26.0-30.0) 06/11/18 19:10 MCHC Differential 32.9 pg (28.0-36.0) 06/11/18 19:10 RDW 13.2 % (11.5-20.0) 06/11/18 19:10 Plt Count 247 Th/cmm (150-400) 06/11/18 19:10 MPV 9.2 fl 06/11/18 19:10 Neutrophils % 66.8 % (40.0-80.0) 06/11/18 19:10 Lymphocytes % 22.2 % (20.0-50.0) 06/11/18 19:10 Monocytes % 7.7 % (2.0-10.0) 06/11/18 19:10 Eosinophils % 2.5 % (0.0-5.0) 06/11/18 19:10 Basophils % 0.8 % (0.0-2.0) 06/11/18 19:10 Sodium 137 mEq/L (136-145) 06/11/18 19:10 Potassium 4.0 mEq/L (3.5-5.1) 06/11/18 19:10 Chloride 102 mEq/L (98-107) 06/11/18 19:10 Carbon Dioxide 27.7 mEq/L (21.0-31.0) 06/11/18 19:10 Anion Gap 11.3 (7.0-16.0) 06/11/18 19:10 BUN 16 mg/dL (7-25) 06/11/18 19:10 Creatinine 1.3 mg/dL (0.7-1.3) 06/11/18 19:10 Est GFR ( Amer) > 60.0 ml/min (>90) 06/11/18 19:10 Est GFR (Non-Af Amer) 59.3 ml/min 06/11/18 19:10 BUN/Creatinine Ratio 12.3 06/11/18 19:10 Glucose 108 mg/dL (70-105) H 06/11/18 19:10 Calcium 9.3 mg/dL (8.6-10.3) 06/11/18 19:10 Triglycerides 109 mg/dL (<150) 06/11/18 19:10 Cholesterol 123 mg/dL (<200) 06/11/18 19:10 LDL Cholesterol Direct 84 mg/dL (75-193) 06/11/18 19:10 HDL Cholesterol 31 mg/dL (23-92) 06/11/18 19:10 Urine Source CLEAN C 06/11/18 20:10 Urine Color YELLOW 06/11/18 20:10 Urine Clarity CLEAR (CLEAR) 06/11/18 20:10 Urine pH 6.0 (4.6 - 8.0) 06/11/18 20:10 Ur Specific [place] 1.015 (1.005-1.030) 06/11/18 20:10 Urine Protein NEGATIVE mg/dL (NEGATIVE) 06/11/18 20:10 Urine Glucose (UA) NEGATIVE mg/dL (NEGATIVE) 06/11/18 20:10 Urine Ketones NEGATIVE mg/dL (NEGATIVE) 06/11/18 20:10 Urine Blood NEGATIVE (NEGATIVE) 06/11/18 20:10 Urine Nitrate NEGATIVE (NEGATIVE) 06/11/18 20:10 Urine Bilirubin NEGATIVE (NEGATIVE) 06/11/18 20:10 Urine Urobilinogen 0.2 E.U./dL (0.2 - 1.0) 06/11/18 20:10 Ur Leukocyte Esterase NEGATIVE (NEGATIVE) 06/11/18 20:10 Urine RBC 0-2 /hpf (0-5) H 06/11/18 20:10 Urine WBC 0-2 /hpf (0-5) 06/11/18 20:10 Ur Epithelial Cells FEW /lpf (FEW) 06/11/18 20:10 Urine Bacteria FEW /hpf (NONE SEEN) 06/11/18 20:10 - Physical Exam Vitals and I&O: Vital Signs Temp 98.0 F 06/18/18 05:25 Pulse 84 06/18/18 08:31 Resp 19 06/18/18 05:25 BP 110/75 06/18/18 08:31 Pulse Ox 91 06/18/18 05:25 Intake & Output 06/17/18 06/18/18 06/18/18 18:59 06:59 18:59 Intake Total 240 Balance 240 Intake: Oral 240 Other: # Voids 1 Active Medications: Current Medications Acetaminophen (Tylenol) 650 mg PO Q4HR PRN PRN Reason: Mild Pain / Temp above 100 Stop: 08/10/18 22:52 Aspirin (Aspirin Chewable) 81 mg PO DAILY [facility] Stop: 08/11/18 08:59 Last Admin: 06/18/18 08:31 Dose: 81 mg Atorvastatin Calcium (Lipitor) 20 mg PO HS [facility] Stop: 08/11/18 20:59 Last Admin: 06/17/18 21:36 Dose: 20 mg Benztropine Mesylate (Cogentin) 2 mg PO BID [facility] Stop: 08/11/18 08:59 Last Admin: 06/18/18 08:31 Dose: 2 mg Carvedilol (Coreg) 12.5 mg PO BIDWM [facility] Stop: 08/11/18 07:59 Last Admin: 06/18/18 08:31 Dose: 12.5 mg Clopidogrel Bisulfate (Plavix) 75 mg PO DAILY [facility] Stop: 08/11/18 08:59 Last Admin: 06/18/18 08:31 Dose: 75 mg Docusate Sodium (Colace) 100 mg PO BID [facility] Stop: 08/11/18 08:59 Last Admin: 06/18/18 08:32 Dose: 100 mg Haloperidol Lactate (Haldol Concentrate 10mg/5ml Susp) 7 mg PO HS [facility] Stop: 08/17/18 20:59 Lisinopril (Zestril) 5 mg PO DAILY [facility] Stop: 08/11/18 08:59 Last Admin: 06/17/18 09:17 Dose: 5 mg Lorazepam (Ativan) 0.5 mg PO Q4HR PRN; Protocol PRN Reason: Anxiety Stop: 07/11/18 22:52 Last Admin: 06/17/18 18:04 Dose: 0.5 mg Magnesium Hydroxide (Milk Of Magnesia) 30 ml PO HS PRN PRN Reason: Constipation Stop: 08/10/18 22:47 Miscellaneous (Deutetrabenazine [Austedo]) 6 mg PO BID [facility] Stop: 08/11/18 08:59 Quetiapine Fumarate (Seroquel) 300 mg PO HS [facility]; Protocol Stop: 08/11/18 20:59 Last Admin: 06/17/18 21:36 Dose: 300 mg Zolpidem Tartrate (Ambien) 5 mg PO HSMR1 PRN PRN Reason: Insomnia Stop: 08/10/18 22:52 Physical Exam: 62 y/o male patient remains very agitated and confused, withdrawn. Staff noted Tremor. General: alert, NAD, other (confused) HEENT: NC/AT, PERRLA Neck: Supple Lungs: CTAB Cardiovascular: RRR, Normal S1, Normal S2 Abdomen: soft, non-tender Extremities: clear Neurological: no change, other (psychosis ) Internal Medicine Assmt/Plan - Assessment Assessment: confused agitation hypertension parkinson's disease schizophrenia psychosis - Plan Plan: as per andreina will monitor vitals labs cpm Nutritional Asmnt/Malnutr-PDOC - Dietary Evaluation Malnutrition Findings (Please click <Entered> for more info): Nutritional Asmnt/Malnutrition Start: 06/15/18 10: 19 Text: Status: Complete Freq: Protocol: Document 06/15/18 10:19 LCHENG (Rec: 06/15/18 10:26 LCHENG [email or web address]) Nutritional Asmnt/Malnutrition Patient General Information Nutritional Screening Moderate Risk Diagnosis psychosis Pertinent Medical Hx/Surgical Hx parkisin, CAD, HTN, schizophrenia Subjective Information Per EMR, PO intake 100%. Current Diet Order/ Nutrition Support 2gm Na, ZIGGY Pertinent Medications lipitor, colace, seroquel Pertinent Labs 06/11 Glucose 108 Nutritional Hx/Data Height 1.75 m Height (Calculated Centimeters) 175.3 Current Weight (lbs) 102.058 kg Weight (Calculated Kilograms) 102.1 Weight (Calculated Grams) 477633.3 [place] Body Weight 160 Body Mass Index (BMI) 33.2 Weight Status Obese GI Symptoms GI Symptoms None Last BM 06/12 Difficult in: None Skin Integrity/Comment: intact Current %PO Good (75-100%) Estimated Nutritional Goals BEE in Kcals: Adj wt of IBW Calories/Kcals/Kg 25-30 Kcals Calculated 3557-7670 Protein: Adj wt of IBW Protein g/k.8 Protein Calculated 64 Fluid: ml 2000-2400ml (1ml/kcal) Nutritional Problem No current Nutrition Prob Problem N/A Malnutrition Alert Is there a minimum of two criteria No selected? Query Text:Check all the applicable criteria. A minimum of two criteria are recommended for diagnosis of either severe or non-severe malnutrition. Malnutrition Related to Morbid Obesity Malnutrition related to morbid obesity No Intervention/Recommendation Comments 1. Continue with 2gm Na ZIGGY diet as ordered. 2. Monitor PO intake, wt, labs and skin integrity 3. F/U as low risk in 7 days Expected Outcomes/Goals Expected Outcomes/Goals 1. PO intake to meet at least 75% of nutritional needs. 2. Wt stability, skin to remain intact, labs to approach WNL.
[2018-06-18] MEDS: Atorvastatin Calcium 10 MG TAB PO SCH (20:43)
[2018-06-18] MEDS ORDERED: Haldol Oral Sol.(concentrate) 10 mg/5 mL Udc PO SCH (21:00)
--- NOTE | 2018-06-18 23:24 | Progress Notes ---
DATE: 06/18/2018 SUBJECTIVE: Case was discussed with staff of the patient and reviewed records. The patient continues to be unpredictable, impulsive, internally preoccupied, psychotic, and needing redirection. Continues to have poor insight. Unable to make safe plan for self-care. At times refusing care. He is compliant with the medication with no side effects, no sedation, no nausea, and no extrapyramidal symptoms. Dr. Henry increased the dose today to 75 mg at bedtime. We will continue to work with the patient in group therapy, milieu therapy, and adjust medication as needed. JOB# [id number]
[2018-06-19] MEDS: Benztropine 1 MG TAB PO SCH ×2 (08:28→16:20)
[2018-06-19] MEDS: Aspirin 81mg Chewable Tab PO SCH (08:28)
--- NOTE | 2018-06-19 13:32 | Internal Medicine Prog Note ---
Internal Medicine Subjective - Subjective Service Date: 06/19/18 Patient is:: awake, confused, other (still confused and agitated ) Patient Complaints of:: other (very withdrawn, staff noting a tremor.) Per staff patient has:: no adverse event, no episodes of fall, agitated, confused, tolerating meds Internal Medicine Objective - Results Result Diagrams: 06/11/18 19:10 06/11/18 19:10 Recent Labs: Laboratory Last Values WBC 9.6 Th/cmm (4.8-10.8) 06/11/18 19:10 RBC 4.99 Mil/cmm (4.30-5.70) 06/11/18 19:10 Hgb 14.6 gm/dL (12-16) 06/11/18 19:10 Hct 44.5 % (41.0-60) 06/11/18 19:10 MCV 89.2 fl (80-99) 06/11/18 19:10 MCH 29.3 pg (26.0-30.0) 06/11/18 19:10 MCHC Differential 32.9 pg (28.0-36.0) 06/11/18 19:10 RDW 13.2 % (11.5-20.0) 06/11/18 19:10 Plt Count 247 Th/cmm (150-400) 06/11/18 19:10 MPV 9.2 fl 06/11/18 19:10 Neutrophils % 66.8 % (40.0-80.0) 06/11/18 19:10 Lymphocytes % 22.2 % (20.0-50.0) 06/11/18 19:10 Monocytes % 7.7 % (2.0-10.0) 06/11/18 19:10 Eosinophils % 2.5 % (0.0-5.0) 06/11/18 19:10 Basophils % 0.8 % (0.0-2.0) 06/11/18 19:10 Sodium 137 mEq/L (136-145) 06/11/18 19:10 Potassium 4.0 mEq/L (3.5-5.1) 06/11/18 19:10 Chloride 102 mEq/L (98-107) 06/11/18 19:10 Carbon Dioxide 27.7 mEq/L (21.0-31.0) 06/11/18 19:10 Anion Gap 11.3 (7.0-16.0) 06/11/18 19:10 BUN 16 mg/dL (7-25) 06/11/18 19:10 Creatinine 1.3 mg/dL (0.7-1.3) 06/11/18 19:10 Est GFR ( Amer) > 60.0 ml/min (>90) 06/11/18 19:10 Est GFR (Non-Af Amer) 59.3 ml/min 06/11/18 19:10 BUN/Creatinine Ratio 12.3 06/11/18 19:10 Glucose 108 mg/dL (70-105) H 06/11/18 19:10 Calcium 9.3 mg/dL (8.6-10.3) 06/11/18 19:10 Triglycerides 109 mg/dL (<150) 06/11/18 19:10 Cholesterol 123 mg/dL (<200) 06/11/18 19:10 LDL Cholesterol Direct 84 mg/dL (75-193) 06/11/18 19:10 HDL Cholesterol 31 mg/dL (23-92) 06/11/18 19:10 Urine Source CLEAN C 06/11/18 20:10 Urine Color YELLOW 06/11/18 20:10 Urine Clarity CLEAR (CLEAR) 06/11/18 20:10 Urine pH 6.0 (4.6 - 8.0) 06/11/18 20:10 Ur Specific [place] 1.015 (1.005-1.030) 06/11/18 20:10 Urine Protein NEGATIVE mg/dL (NEGATIVE) 06/11/18 20:10 Urine Glucose (UA) NEGATIVE mg/dL (NEGATIVE) 06/11/18 20:10 Urine Ketones NEGATIVE mg/dL (NEGATIVE) 06/11/18 20:10 Urine Blood NEGATIVE (NEGATIVE) 06/11/18 20:10 Urine Nitrate NEGATIVE (NEGATIVE) 06/11/18 20:10 Urine Bilirubin NEGATIVE (NEGATIVE) 06/11/18 20:10 Urine Urobilinogen 0.2 E.U./dL (0.2 - 1.0) 06/11/18 20:10 Ur Leukocyte Esterase NEGATIVE (NEGATIVE) 06/11/18 20:10 Urine RBC 0-2 /hpf (0-5) H 06/11/18 20:10 Urine WBC 0-2 /hpf (0-5) 06/11/18 20:10 Ur Epithelial Cells FEW /lpf (FEW) 06/11/18 20:10 Urine Bacteria FEW /hpf (NONE SEEN) 06/11/18 20:10 - Physical Exam Vitals and I&O: Vital Signs Temp 97.9 F 06/19/18 05:56 Pulse 69 06/19/18 08:29 Resp 18 06/19/18 05:56 BP 111/60 06/19/18 08:29 Pulse Ox 94 06/19/18 05:56 Intake & Output 06/18/18 06/19/18 06/19/18 18:59 06:59 18:59 Intake Total 900 420 Balance 900 420 Intake: Oral 900 420 Other: # Voids 3 3 # Bowel Movements 1 0 Active Medications: Current Medications Acetaminophen (Tylenol) 650 mg PO Q4HR PRN PRN Reason: Mild Pain / Temp above 100 Stop: 08/10/18 22:52 Aspirin (Aspirin Chewable) 81 mg PO DAILY [facility] Stop: 08/11/18 08:59 Last Admin: 06/19/18 08:28 Dose: 81 mg Atorvastatin Calcium (Lipitor) 20 mg PO HS [facility] Stop: 08/11/18 20:59 Last Admin: 06/18/18 20:43 Dose: 20 mg Benztropine Mesylate (Cogentin) 2 mg PO BID [facility] Stop: 08/11/18 08:59 Last Admin: 06/19/18 08:28 Dose: 2 mg Carvedilol (Coreg) 12.5 mg PO BIDWM [facility] Stop: 08/11/18 07:59 Last Admin: 06/19/18 08:28 Dose: 12.5 mg Clopidogrel Bisulfate (Plavix) 75 mg PO DAILY [facility] Stop: 08/11/18 08:59 Last Admin: 06/19/18 08:29 Dose: 75 mg Docusate Sodium (Colace) 100 mg PO BID [facility] Stop: 08/11/18 08:59 Last Admin: 06/19/18 08:28 Dose: 100 mg Haloperidol Lactate (Haldol Concentrate 10mg/5ml Susp) 7 mg PO HS [facility] Stop: 08/17/18 20:59 Last Admin: 06/18/18 20:43 Dose: 7 mg Lisinopril (Zestril) 5 mg PO DAILY [facility] Stop: 08/11/18 08:59 Last Admin: 06/19/18 08:29 Dose: 5 mg Lorazepam (Ativan) 0.5 mg PO Q4HR PRN; Protocol PRN Reason: Anxiety Stop: 07/11/18 22:52 Last Admin: 06/17/18 18:04 Dose: 0.5 mg Magnesium Hydroxide (Milk Of Magnesia) 30 ml PO HS PRN PRN Reason: Constipation Stop: 08/10/18 22:47 Miscellaneous (Deutetrabenazine [Austedo]) 6 mg PO BID [facility] Stop: 08/11/18 08:59 Quetiapine Fumarate (Seroquel) 300 mg PO HS [facility]; Protocol Stop: 08/11/18 20:59 Last Admin: 06/18/18 20:43 Dose: 300 mg Zolpidem Tartrate (Ambien) 5 mg PO HSMR1 PRN PRN Reason: Insomnia Stop: 08/10/18 22:52 Last Admin: 06/18/18 20:44 Dose: 5 mg General: alert, NAD, other (confused) HEENT: NC/AT, PERRLA Neck: Supple Lungs: CTAB Cardiovascular: RRR, Normal S1, Normal S2 Abdomen: soft, non-tender Extremities: clear Neurological: no change, other (psychosis ) Internal Medicine Assmt/Plan - Assessment Assessment: agitation htn parkinsons schizophrenia - Plan Plan: cpm Nutritional Asmnt/Malnutr-PDOC - Dietary Evaluation Malnutrition Findings (Please click <Entered> for more info): Nutritional Asmnt/Malnutrition Start: 06/15/18 10: 19 Text: Status: Complete Freq: Protocol: Document 06/15/18 10:19 LCHENG (Rec: 06/15/18 10:26 LCHENG [email or web address]) Nutritional Asmnt/Malnutrition Patient General Information Nutritional Screening Moderate Risk Diagnosis psychosis Pertinent Medical Hx/Surgical Hx parkisin, CAD, HTN, schizophrenia Subjective Information Per EMR, PO intake 100%. Current Diet Order/ Nutrition Support 2gm Na, ZIGGY Pertinent Medications lipitor, colace, seroquel Pertinent Labs 06/11 Glucose 108 Nutritional Hx/Data Height 5 ft 9 in Height (Calculated Centimeters) 175.3 Current Weight (lbs) 225 lb Weight (Calculated Kilograms) 102.1 Weight (Calculated Grams) 584278.3 [place] Body Weight 160 Body Mass Index (BMI) 33.2 Weight Status Obese GI Symptoms GI Symptoms None Last BM 06/12 Difficult in: None Skin Integrity/Comment: intact Current %PO Good (75-100%) Estimated Nutritional Goals BEE in Kcals: Adj wt of IBW Calories/Kcals/Kg 25-30 Kcals Calculated 6399-3115 Protein: Adj wt of IBW Protein g/k.8 Protein Calculated 64 Fluid: ml 2000-2400ml (1ml/kcal) Nutritional Problem No current Nutrition Prob Problem N/A Malnutrition Alert Is there a minimum of two criteria No selected? Query Text:Check all the applicable criteria. A minimum of two criteria are recommended for diagnosis of either severe or non-severe malnutrition. Malnutrition Related to Morbid Obesity Malnutrition related to morbid obesity No Intervention/Recommendation Comments 1. Continue with 2gm Na ZIGGY diet as ordered. 2. Monitor PO intake, wt, labs and skin integrity 3. F/U as low risk in 7 days Expected Outcomes/Goals Expected Outcomes/Goals 1. PO intake to meet at least 75% of nutritional needs. 2. Wt stability, skin to remain intact, labs to approach WNL.
--- NOTE | 2018-06-19 17:39 | Discharge Summary ---
DATE OF DISCHARGE: 06/19/2018 FINAL DIAGNOSES AND PRIMARY DIAGNOSES: Schizoaffective disorder, bipolar type, with psychotic features, severe. REASON FOR HOSPITALIZATION: The patient was admitted to the hospital because of being paranoid and the patient was in irritable mood and he was also agitated in [facility] where he has been living. HOSPITAL COURSE: The patient continued to be anxious and continued to be paranoid. The patient also was guarded and was withdrawn. He also seems to have difficulty with the staff and following redirections. Also, he was argumentative at times. The patient was easily irritable and agitated upon admission. The patient was started on Haldol and the dose adjusted to 7 mg at bedtime. Also, he is getting Seroquel in a dose of 300 mg at bedtime. Questionable compliance with the medication that is why patient was given Haldol in liquid form. Gradually, the patient's affect was brighter. The patient was not agitated. Also, he was compliant with taking his medications. The patient was discharged from the hospital back to [facility]. Physical examination of the patient showed no major medical problems. The patient also is taking two antipsychotic medications with plan to cross the titration. AFTER DISCHARGE PLANS: The patient discharged from the hospital back to [facility] with plan to follow him up there. EXPECTED OUTCOME AFTER DISCHARGE: Fair if the patient continues to take his psychotropic medications and follow up with discharge plans. [facility]# [id number]
== END 2018-06-19 17:00 | DRG 885 ==
LOC: ER 18:17 → GERO 19:54
PROVIDERS: ADMIT Psychiatry & Neurology Psychiatry; ATTEND Psychiatry & Neurology Psychiatry
DX: F25.0 Schizoaffective disorder, bipolar type (principal); G20 Parkinson's disease; I25.10 Atherosclerotic heart disease of native coronary artery without angina pectoris; I10 Essential (primary) hypertension
CPT/HCPCS: 36415-UA; 80048-TC; 80061-TC; 81001-TC; 83036-90; 85025-TC; G0410; Z7610